=== PATIENT | female | born 1970 | race Caucasian/White ===

== ENCOUNTER 2017-05-20 04:48 | Emergency (ER) | payer OTHER ==
[2017-05-20] MEDS ORDERED: XANAX0.5 MG PO (04:57)
[2017-05-20] MEDS ORDERED: LEXAPRO20 MG PO (05:00)
[2017-05-20 06:02] LABS: IMMATURE GRANULOCYTES 0.3 % (0.0-1.0); MEAN CELL VOLUME 90.6 fL CALC (80.0-100.0); MEAN CORPUSCULAR HGB 30.6 pG CALC (26.0-32.0); MEAN CORPUSCULAR HGB CONC 33.7 g/L CALC (32.0-36.0); NEUT# 3.75 thou/uL (2.00-7.15); RED BLOOD COUNT 4.48 mill/uL (4.20-5.60); RED CELL DISTRI WIDTH 13.4 % (11.5-15.5)
[2017-05-20 06:05] LABS: URINE BILIRUBIN - DIPSTICK NEGATIVE (NEGATIVE); URINE BLOOD DIPSTICK TRACE-LYSED (NEGATIVE); URINE COLOR YELLOW; URINE GLUCOSE - DIPSTICK NEGATIVE (NEGATIVE); URINE KETONE NEGATIVE (NEGATIVE); URINE LEUK ESTERASE NEGATIVE (NEGATIVE); URINE NITRITE - DIPSTICK NEGATIVE (Negative); URINE PROTEIN - DIPSTICK NEGATIVE (NEG-TRACE); URINE SPECIFIC GRAVITY 1.025; URINE UROBILINOGEN - DIPSTICK 0.2 E.U./dL (0.2)
[2017-05-20 06:06] LABS: HEMATOCRIT 40.6 % (37.0-47.0); HEMOGLOBIN 13.7 g/dl (12.0-16.0); URINE CLARITY CLEAR
[2017-05-20 06:19] LABS: BARBITURATES NEGATIVE (NEGATIVE); COCAINE NEGATIVE (NEGATIVE); METHADONE NEGATIVE (NEGATIVE); TETRAHYDROCANNABIONOL NEGATIVE (NEGATIVE); TRICYLIC ANTIDEPRESSANTS NEGATIVE (NEGATIVE)
[2017-05-20 06:20] LABS: OXCYCODONE NEGATIVE (NEGATIVE)
[2017-05-20 06:31] LABS: ALKALINE PHOSPHATASE 78 u/l (38-126); ANION GAP 17 (6-22 (CALC)); BILIRUBIN, TOTAL 0.6 mg/dL (0.0-1.4); BUN 14 mg/dL (7-17); BUN/CREATININE RATIO 18 (12-20 (CALC)); CARBON DIOXIDE 24 mmol/l (22-30); CHLORIDE 107 mmol/l (95-108); CREATININE 0.8 mg/dL (0.5-1.0); GFR > 60 ML/MIN (>=60 (CALC)); GFR FOR AFR.AMER. > 60 ML/MIN (>=60 (CALC)); POTASSIUM 4.1 mmol/l (3.5-5.1); SGOT/AST 24 u/l (14-36); SGPT/ALT 22 u/l (9-52); SODIUM 144 mmol/l (137-146)
[2017-05-20 06:32] LABS: ALBUMIN 4.1 g/dL (3.2-5.0); TOTAL PROTEIN 6.8 g/dL (6.3-8.2)
[2017-05-20 06:59] VITALS: BP 124/61
== END 2017-05-20 07:08 | disposition home or self-care (01) | DRG 310 ==
LOC: ED 04:48
PROVIDERS: Emergency Medicine
DX: R00.2 Palpitations (principal); F41.0 Panic disorder [episodic paroxysmal anxiety]

== ENCOUNTER → 2018-06-10 | Outpatient (REF) | payer SELFPAY ==
[~2018-06-10] MED LIST: LEXAPRO20 MG PO; XANAX0.5 MG PO
[2018-06-10 10:53] LABS: HEMATOCRIT 44.7 % (37.0-47.0); HEMOGLOBIN 14.7 g/dl (12.0-16.0); IMMATURE GRANULOCYTES 0.2 % (0.0-5.0); MEAN CELL VOLUME 89.6 fL CALC (80.0-100.0); MEAN CORPUSCULAR HGB 29.5 pG CALC (26.0-32.0); MEAN CORPUSCULAR HGB CONC 32.9 g/L CALC (32.0-36.0); NEUT# 2.35 thou/uL (2.00-7.15); RED BLOOD COUNT 4.99 mill/uL (4.20-5.60); RED CELL DISTRI WIDTH 12.9 % (11.5-15.5)
[2018-06-10 11:31] LABS: ALBUMIN 4.7 g/dL (3.2-5.0); ALKALINE PHOSPHATASE 82 u/l (38-126); ANION GAP 12 (6-22 (CALC)); BILIRUBIN, TOTAL 0.5 mg/dL (0.0-1.4); BUN 15 mg/dL (7-17); BUN/CREATININE RATIO 19 (12-20 (CALC)); CARBON DIOXIDE 28 mmol/l (22-30); CHLORIDE 105 mmol/l (95-108); CREATININE 0.8 mg/dL (0.5-1.0); GFR > 60 ML/MIN (>=60 (CALC)); GFR FOR AFR.AMER. > 60 ML/MIN (>=60 (CALC)); SGOT/AST 35 u/l (14-36); SODIUM 140 mmol/l (137-146); TOTAL PROTEIN 7.9 g/dL (6.3-8.2)
[2018-06-10 11:32] LABS: POTASSIUM 5.1 mmol/l (3.5-5.1)
== END | disposition home or self-care (01) | DRG 880 ==
LOC: LAB 10:26
PROVIDERS: ATTEND Internal Medicine
DX: F41.9 Anxiety disorder, unspecified (principal)

== ENCOUNTER 2019-04-01 | Day surgery (SDC) | payer SELFPAY ==
[~2019-04-01] MED LIST changes: +ALPRAZOLAM ER0.5 MG PO; +PROTONIX40 M2 PO
== END 2019-04-01 10:08 | disposition home or self-care (01) | DRG 392 ==
PROC: 0DB78ZX Excision of Stomach, Pylorus, Via Natural or Artificial Opening Endoscopic, Diagnostic (ICD-10-PCS; principal; 2019-04-01)
PROC: 0DJD8ZZ Inspection of Lower Intestinal Tract, Via Natural or Artificial Opening Endoscopic (ICD-10-PCS; 2019-04-01)
DX: K29.50 Unspecified chronic gastritis without bleeding (principal); J39.2 Other diseases of pharynx; K44.9 Diaphragmatic hernia without obstruction or gangrene; Z12.11 Encounter for screening for malignant neoplasm of colon

== ENCOUNTER 2021-03-30 13:31 | Emergency (ER) | payer SELFPAY ==
[~2021-03-30] VITALS: Ht 171.4 cm; Wt 75.0 kg
[2021-03-30 15:32] VITALS: BP 138/75
== END 2021-03-30 15:32 | disposition home or self-care (01) | DRG 556 ==
LOC: ED 13:31
DX: M25.562 Pain in left knee (principal); F41.9 Anxiety disorder, unspecified

== ENCOUNTER 2021-09-18 04:56 | Emergency (ER) | payer SELFPAY ==
[2021-09-18] VITALS (7 sets, daily range): BP systolic 120–140; BP diastolic 52–75
[~2021-09-18] VITALS: Ht 171.4 cm; Wt 87.2 kg
[2021-09-18] MEDS ORDERED: MECLIZINE25 MG PO ×2 (05:25→06:34)
[2021-09-18] MEDS ORDERED: LEXAPRO10 MG PO (05:26)
[2021-09-18] MEDS ORDERED: OMEPRAZOLE DR40 MG PO (05:26)
[2021-09-18 05:50] LABS: HEMATOCRIT 42.8 % (37.0-47.0); IMMATURE GRANULOCYTES 0.1 % (0.0-5.0); MEAN CELL VOLUME 91.3 fL CALC (80.0-100.0); MEAN CORPUSCULAR HGB 29.9 pG CALC (26.0-32.0); MEAN CORPUSCULAR HGB CONC 32.7 g/dL CAL (32.0-36.0); NEUT# 5.92 thou/uL (2.00-7.15); RED BLOOD COUNT 4.69 mill/uL (4.20-5.60)
[2021-09-18 05:54] LABS: URINE BILIRUBIN - DIPSTICK NEGATIVE (NEGATIVE); URINE BLOOD DIPSTICK TRACE-INTACT (NEGATIVE); URINE COLOR YELLOW; URINE GLUCOSE - DIPSTICK NEGATIVE (NEGATIVE); URINE KETONE NEGATIVE (NEGATIVE); URINE LEUK ESTERASE TRACE (NEGATIVE); URINE PH 5.5 (4.5-8.0); URINE PROTEIN - DIPSTICK NEGATIVE (NEG-TRACE); URINE SPECIFIC GRAVITY 1.025; URINE UROBILINOGEN - DIPSTICK 0.2 E.U./dL (0.2)
[2021-09-18 05:55] LABS: URINE NITRITE - DIPSTICK NEGATIVE (Negative)
[2021-09-18 06:08] LABS: ALBUMIN 4.4 g/dL (3.2-5.0); ALKALINE PHOSPHATASE 86 u/l (38-126); ANION GAP 12 (6-22 (CALC)); BILIRUBIN, TOTAL 0.4 mg/dL (0.0-1.4); BUN 16 mg/dL (7-17); BUN/CREATININE RATIO 21 (12-20 (CALC)); CARBON DIOXIDE 26 mmol/l (22-30); CHLORIDE 107 mmol/l (95-108); CREATININE 0.8 mg/dL (0.5-1.0); GFR FOR AFR.AMER. > 60 ML/MIN (>=60 (CALC)); GFR OTHER RACES > 60 ML/MIN (>=60 (CALC)); POTASSIUM 3.8 mmol/l (3.5-5.1); SGOT/AST 45 u/l (14-36); SODIUM 141 mmol/l (137-146); TOTAL PROTEIN 7.6 g/dL (6.3-8.2)
[2021-09-18 06:20] LABS: MYOGLOBIN 28 ng/mL (0 - 62)
[2021-09-18] MEDS ORDERED: ONDANSETRON4 MG PO (06:34)
[2021-09-18] MEDS ORDERED: MEDDOSEPAK PO (06:34)
[2021-09-18] MEDS ORDERED: GENTAMICIN SULF5 ML OU (06:34)
== END 2021-09-18 07:50 | disposition home or self-care (01) | DRG 149 ==
LOC: ED 04:56
PROVIDERS: Emergency Medicine
DX: R42 Dizziness and giddiness (principal); H10.9 Unspecified conjunctivitis; J02.9 Acute pharyngitis, unspecified; F41.9 Anxiety disorder, unspecified; Z20.822 Contact with and (suspected) exposure to COVID-19

== ENCOUNTER 2024-04-05 16:31 | Emergency (ER) | payer SELFPAY ==
[2024-04-05] VITALS (12 sets, daily range): BP systolic 107–138; BP diastolic 55–65
[~2024-04-05] VITALS: Ht 171.4 cm; Wt 88.0 kg
[~2024-04-05 16:31] MED LIST changes: +GENTAMICIN SULF5 ML OU; +LEXAPRO10 MG PO; +MECLIZINE25 MG PO; +MEDDOSEPAK PO; +OMEPRAZOLE DR40 MG PO; +ONDANSETRON4 MG PO
[2024-04-05] MEDS ORDERED: SODIUM CHLORIDE 0.9% 1,000 ML IV ONE (18:10)
[2024-04-05] MEDS ORDERED: KETOROLAC TROMETHAMINE 30 MG/ML SDV IV ONE (18:10)
[2024-04-05 18:20] LABS: BASO% 0.2 % (0-3); EOS% 0.9 % (0-8); HEMATOCRIT 44.4 % (37.0-47.0); HEMOGLOBIN 14.2 g/dl (12.0-16.0); IMMATURE GRANULOCYTES 0.2 % (0.0-5.0); LYMPH% 16.6 % (15-41); MEAN CORPUSCULAR HGB 29.1 pG CALC (26.0-32.0); MONO% 16.6 % (2-13); NEUT# 4.34 thou/uL (2.00-7.15); NEUT% 65.5 % (42-76); RED BLOOD COUNT 4.88 mill/uL (4.20-5.60); RED CELL DISTRI WIDTH 13.4 % (11.5-15.5)
[2024-04-05 18:25] LABS: ALBUMIN 4.5 g/dL (3.2-5.0); BILIRUBIN, TOTAL 0.8 mg/dL (0.02-1.3); CREATININE 0.8 mg/dL (0.5-1.0); POTASSIUM 4.5 mmol/l (3.5-5.1)
[2024-04-05 19:17] LABS: URINE BILIRUBIN - DIPSTICK Negative (NEGATIVE); URINE BLOOD DIPSTICK Trace-intact (NEGATIVE); URINE COLOR Yellow; URINE GLUCOSE - DIPSTICK Negative (NEGATIVE); URINE KETONE Negative (NEGATIVE); URINE LEUK ESTERASE Negative (NEGATIVE); URINE NITRITE - DIPSTICK Negative (Negative); URINE PROTEIN - DIPSTICK Negative (NEG-TRACE); URINE SPECIFIC GRAVITY 1.015; URINE UROBILINOGEN - DIPSTICK 0.2 E.U./dL (0.2)
[2024-04-05] MEDS ORDERED: ACETAMINOPHEN 325 MG/TAB PO ONE (19:20)
[2024-04-05] MEDS ORDERED: MEDDOSEPAK PO (19:48)
[2024-04-05] MEDS ORDERED: BENZONATATE200 MG PO (19:48)
[2024-04-05] MEDS ORDERED: ZPAK PO (19:48)
[2024-04-05] MEDS ORDERED: AZELASTINE HCL0.1 % NAB (19:48)
== END 2024-04-05 20:12 | disposition home or self-care (01) | DRG 153 ==
LOC: ED 16:31
PROVIDERS: Emergency Medicine
DX: J01.90 Acute sinusitis, unspecified (principal); B96.89 Other specified bacterial agents as the cause of diseases classified elsewhere; Z20.822 Contact with and (suspected) exposure to COVID-19